=== PATIENT | male | born 1965 | race Caucasian/White ===

== ENCOUNTER 2023-07-11 15:25 | Inpatient (IN) | payer OTHER ==
[~2023-07-11] VITALS: Ht 182.9 cm; Wt 108.5 kg
[2023-07-11 16:15] VITALS: PULSE 149; RESP 19; O2SAT 99
[2023-07-11] MEDS ORDERED: ENOXAPARIN SOD 100 MG/1 ML SYRINGE SC ONE (16:15)
[2023-07-11] MEDS ORDERED: AMIODARONE BOLUS KIT 100 ML IV ONE (16:15)
[2023-07-11] MEDS ORDERED: SODIUM CHLORIDE 0.9% 500 ML IV ONE (16:15)
[2023-07-11] MEDS ORDERED: dilTIAZem 25 MG/5 ML VIAL IV ONE (16:15)
[2023-07-11] MEDS ORDERED: AMIODARONE 450mg/250ml AE 250 ML IV SCH (16:30)
[2023-07-11 16:40] LABS: Basophils # (auto) 0.1 10 ^3/uL (0-0.2); Basophils % (auto) 0.7 % (0.0-2.0); Eosinophils # (auto) 0.3 10 ^3/uL (0-0.8); Eosinophils % (auto) 3.2 % (0.0-7.0); Hematocrit 42.4 % (41.0-53.0); Lymphocytes # (auto) 3.2 10 ^3/uL (0.4-5.4); Mean Corpuscular Hemoglobin 28.8 pg (28.0-32.0); Mean Corpuscular Volume 87.2 fL (80.0-100.0); Monocytes # (auto) 0.8 10 ^3/uL (0-1.3); Monocytes % (auto) 7.8 % (0.0-12.0); Neutrophils # (auto) 5.6 10 ^3/uL (1.6-8.6); Neutrophils % (auto) 56.3 % (37.0-80.0); Nucleated Red Blood Cells % 0.1 %; Red Blood Cells 4.86 10^6/uL (4.5-5.90); Red Cell Distribution Width 13.1 % (11.8-14.3)
[2023-07-11 16:59] LABS: Chloride 112 mmol/L (98-107); Potassium 4.2 mmol/L (3.5-5.1); Sodium 140 mmol/L (136-145)
[2023-07-11 17:00] LABS: Anion Gap 6 (5-15); Calcium 8.9 mg/dL (8.7-10.4); Carbon Dioxide 22 mmol/L (20-30)
[2023-07-11 17:05] LABS: BUN/Creatinine Ratio 11.7 (10.0-20.0); Blood Urea Nitrogen 13 mg/dL (9-23); Glucose 95 mg/dL (74-106)
[2023-07-11 17:06] LABS: Magnesium 2.3 mg/dL (1.6-2.6)
[2023-07-11] MEDS ORDERED: MORPHINE SULFATE INJ 2 MG/ml SYRG IV PRN (17:45)
[2023-07-11] MEDS ORDERED: NITROGLYCERIN 0.4 MG SL TAB SL PRN (17:45)
[2023-07-11] MEDS ORDERED: ACETAMINOPHEN 325 MG TAB PO PRN (17:45)
[2023-07-11] MEDS ORDERED: AMIT25TA20 PO (18:01)
[2023-07-11] MEDS ORDERED: HYDRX10T PO (18:01)
[2023-07-11] MEDS ORDERED: CIPR500T4 PO (18:01)
[2023-07-11] MEDS ORDERED: AMIT-238 PO (18:01)
[2023-07-11] MEDS ORDERED: SUMA25TA2 PO (18:01)
[2023-07-11] MEDS ORDERED: IBUP-1455 PO (18:01)
[2023-07-11] MEDS ORDERED: AMIT-256 PO (18:01)
[2023-07-11] MEDS ORDERED: GAB100C PO (18:01)
[2023-07-11] MEDS ORDERED: METO25TA93 PO (18:01)
[2023-07-11] MEDS ORDERED: LOSA100T58 PO (18:01)
[2023-07-11] MEDS ORDERED: ALBUTEROL SULF 2.5 MG/0.5ML(0.5%) NEB SOLN NEB PRN (18:15)
[2023-07-11 18:20] VITALS: O2SAT 98
[2023-07-11 18:28] LABS: Triglycerides 160 mg/dL (< 150)
[2023-07-11 18:29] LABS: LDL Cholesterol 79 mg/dL (< 100)
[2023-07-11 18:30] LABS: Cholesterol 127 mg/dL (< 200); HDL Cholesterol 37 mg/dL (40-59)
[2023-07-11] MEDS ORDERED: ASPirin 325 MG TAB PO ONE (18:30)
[2023-07-11] MEDS: SODIUM CHLORIDE 0.9% 1,000 ML IV SCH (18:40)
[2023-07-11 18:50] VITALS: BP 122/93; PULSE 92; RESP 15; O2SAT 98
[2023-07-11 19:00] LABS: Urine WBC None Seen /hpf (0 - 3)
[2023-07-11 19:25] LABS: Urine Bacteria NONE SEEN /hpf (None Seen); Urine Blood Negative /uL (Negative); Urine Clarity Clear (Clear); Urine Color Yellow (Yellow); Urine Protein, UAD Negative (Negative); Urine Specific Gravity 1.018 (1.001-1.035); Urine Urobilinogen Normal (Negative)
[2023-07-11 19:28] LABS: Amphetamine Screen, Urine Neg (NEGATIVE); Barbiturate Scree,Urine Neg (NEGATIVE); Benzodiazephine Screen, Urine Neg (NEGATIVE); Cannabinoid Screen, Urine Neg (NEGATIVE); Cocaine Screen, Urine Neg (NEGATIVE); Opiate Scree,Urine Neg (NEGATIVE); Phencyclidine Screen, Urine Neg (NEGATIVE)
[2023-07-11 19:36] VITALS: PULSE 80; RESP 16; O2SAT 98
[2023-07-12] VITALS (8 sets, daily range): BP systolic 109–123; BP diastolic 66–72; PULSE 75–94; RESP 14–18; TEMP 36.6; O2SAT 95–99
[2023-07-12] MEDS ORDERED: AMIODARONE 450mg/250ml AE 250 ML IV SCH (00:30)
[2023-07-12 06:24] LABS: Basophils # (auto) 0 10 ^3/uL (0-0.2); Basophils % (auto) 0.4 % (0.0-2.0); Eosinophils # (auto) 0.3 10 ^3/uL (0-0.8); Eosinophils % (auto) 3.5 % (0.0-7.0); Hematocrit 41.9 % (41.0-53.0); Hemoglobin 13.8 g/dL (13.5-17.5); Lymphocytes # (auto) 2.6 10 ^3/uL (0.4-5.4); Lymphocytes % (auto) 33.2 % (10.0-50.0); Mean Corpuscular Hemoglobin 28.8 pg (28.0-32.0); Mean Corpuscular Volume 87.1 fL (80.0-100.0); Monocytes # (auto) 0.7 10 ^3/uL (0-1.3); Monocytes % (auto) 8.7 % (0.0-12.0); Neutrophils # (auto) 4.2 10 ^3/uL (1.6-8.6); Neutrophils % (auto) 54.2 % (37.0-80.0); Red Blood Cells 4.81 10^6/uL (4.5-5.90); Red Cell Distribution Width 13.3 % (11.8-14.3); White Blood Cell 7.8 10^3/uL (4.4-10.8)
[2023-07-12 06:42] LABS: Alanine Aminotransferase 51 U/L (7-40); Albumin 4.4 g/dL (3.2-4.8); Alkaline Phosphatase 92 U/L (46-116); Anion Gap 8 (5-15); BUN/Creatinine Ratio 14.4 (10.0-20.0); Blood Urea Nitrogen 15 mg/dL (9-23); Calcium 8.8 mg/dL (8.7-10.4); Carbon Dioxide 21 mmol/L (20-30); Chloride 110 mmol/L (98-107); Glucose 99 mg/dL (74-106); Potassium 4.3 mmol/L (3.5-5.1); Sodium 139 mmol/L (136-145)
[2023-07-12 06:43] LABS: Aspartate Aminotransferase 26 U/L (13-40); Bilirubin, Total 0.7 mg/dL (0.2-1.0); Total Protein 6.7 g/dL (5.7-8.2)
[2023-07-12] MEDS ORDERED: ENOXAPARIN SOD 40 MG/0.4 ML SYRINGE SC SCH (10:00)
[2023-07-12] MEDS: SODIUM CHLORIDE 0.9% 1,000 ML IV SCH (10:00)
[2023-07-12] MEDS ORDERED: ENOXAPARIN SOD 100 MG/1 ML SYRINGE SC SCH (10:00)
[2023-07-12] MEDS ORDERED: ASPirin 81 mg TAB PO SCH (10:00)
[2023-07-12] MEDS ORDERED: dilTIAZem 120MG ER CAP PO SCH (11:00)
[2023-07-12] MEDS ORDERED: DILT120T8 PO (13:45)
[2023-07-12] MEDS ORDERED: APIX5TAB PO (13:45)
== END 2023-07-12 14:58 | disposition home or self-care (01) | DRG 310 ==
LOC: ER 15:25 → TELE 17:57 → TELE-EAST 07-12 04:54
PROVIDERS: ADMIT Nurse Practitioner Family; ATTEND Nurse Practitioner Family
DX: I48.92 Unspecified atrial flutter (principal); I10 Essential (primary) hypertension; E66.01 Morbid (severe) obesity due to excess calories; F32.A Depression, unspecified; F41.9 Anxiety disorder, unspecified; Z98.84 Bariatric surgery status; Z71.3 Dietary counseling and surveillance; Z68.32 Body mass index [BMI] 32.0-32.9, adult; Z87.891 Personal history of nicotine dependence; Z79.82 Long term (current) use of aspirin
CPT/HCPCS: 36415; 71045; 80048; 80053; 80061; 80307; 81001; 83735; 84443; 84484; 85025; 85379; 93005; 93306; 99291; G0378

== ENCOUNTER 2023-11-03 08:57 | Day surgery (SDC) | payer OTHER ==
[~2023-11-03] VITALS: Ht 182.9 cm; Wt 104.8 kg
[~2023-11-03 08:57] MED LIST: APIX5TAB PO; DILT120C54 PO; GAB100C PO; LOSA-535 PO; MULT-733 OR
[2023-11-03] MEDS ORDERED: MIDAZOLAM HCL 2MG/2ML 2ml VIAL (1mg/ml) IV ONE (09:15)
[2023-11-03] MEDS ORDERED: LIDOCAINE VISCOUS 2% 15ML UD MT ONE (09:15)
[2023-11-03] MEDS ORDERED: fentaNYL CITRATE 100 MCG/2 ML VL IV ONE (09:15)
[2023-11-03] MEDS ORDERED: fentaNYL CITRATE 100 MCG/2 ML VL ONE (09:41)
[2023-11-03] MEDS ORDERED: LIDOCAINE VISCOUS 2% 15ML UD ONE (09:41)
[2023-11-03] MEDS ORDERED: MIDAZOLAM HCL 2MG/2ML 2ml VIAL (1mg/ml) ONE (09:42)
[2023-11-03] MEDS ORDERED: diphenhdrAMINE HCL 50 MG/1 ML VL ONE (10:13)
== END 2023-11-03 12:25 | disposition home or self-care (01) ==
LOC: CATH 08:57
PROVIDERS: ATTEND Internal Medicine
DX: I48.92 Unspecified atrial flutter (principal); I08.3 Combined rheumatic disorders of mitral, aortic and tricuspid valves; R00.2 Palpitations; I42.8 Other cardiomyopathies; R00.0 Tachycardia, unspecified
CPT/HCPCS: 92960; 93312; J1200; J2250; J3010; J7030; 93005; 99152